=== PATIENT | male | born 1995 | race Caucasian/White ===

== ENCOUNTER 2021-07-13 03:35 | Emergency (ER) | payer MEDICAID ==
[~2021-07-13] VITALS: Ht 190.5 cm; Wt 108.9 kg
[~2021-07-13 03:35] MED LIST: ALBU0.0939; FLUT1DSK19; LORA10TA
[2021-07-13] MEDS ORDERED: IBUPROFEN 800 MG TAB PO ONE (03:45)
[2021-07-13 03:47] VITALS: BP 136/84
[2021-07-13] MEDS ORDERED: ACETAMINOPHEN EXTRA STRENGTH 500 MG TAB ONE (03:54)
[2021-07-13] MEDS ORDERED: ACETAMINOPHEN EXTRA STRENGTH 500 MG TAB PO ONE (03:55)
[2021-07-13] MEDS ORDERED: PROPOFOL 200 MG/20 ML VIAL IV ONE ×4 (04:22→08:10)
--- NOTE | 2021-07-13 04:30 | NUR ---
patient moved to bed 11
--- NOTE | 2021-07-13 05:00 | NUR ---
set up for conscious sedation per ERMD orders.
[2021-07-13] MEDS ORDERED: MORPHINE SULFATE 2 MG/ML SYR IVP ONE (05:45)
[2021-07-13] MEDS ORDERED: ONDANSETRON 4 MG/2 ML VIAL IVP ONE (05:45)
--- NOTE | 2021-07-13 06:00 | NUR ---
xray at bedside
--- NOTE | 2021-07-13 06:13 | NUR ---
PER SIMON SIDDIQUI, HOLD ON MORPHINE AND ZOFRAN MEDICATION AFTER RIGHT SHOULDER REDUCTION PROCEDURE.
--- NOTE | 2021-07-13 06:20 | NUR ---
set up for another conscious sedation per ERMD orders.
[2021-07-13] MEDS ORDERED: ETOMIDATE 20 MG/10 ML VIAL IVP ONE (06:25)
--- NOTE | 2021-07-13 07:00 | NUR ---
RT ATTENDED CONSIOUS SEDATION. NO SOB OR DISTRESS NOTED.
[2021-07-13] MEDS ORDERED: MORPHINE SULFATE 2 MG/ML SYR ONE (07:03)
[2021-07-13] MEDS ORDERED: fentaNYL citrate 0.05 MG/ML VIAL IVP ONE (07:10)
[2021-07-13] MEDS ORDERED: diphenhydrAMINE 50 MG/ML VIAL IVP ONE (07:15)
--- NOTE | 2021-07-13 07:47 | NUR ---
PT TAKEN TO CT VIA [facility], ACCOMPANIED BY PD.
--- NOTE | 2021-07-13 07:53 | NUR ---
Pt report given to Sterling ORTEZ. Transfer of care at this time.
--- NOTE | 2021-07-13 07:53 | NUR ---
REPORT RECEIVED FROM JASBIR RN FOR CONTINUITY OF CARE
--- NOTE | 2021-07-13 07:58 | NUR ---
PT RETURNED FROM CT
--- NOTE | 2021-07-13 08:02 | NUR ---
See conscious sedation form for VS
[2021-07-13 08:52] VITALS: BP 147/79
--- NOTE | 2021-07-13 08:52 | NUR ---
PATIENT BIB [employer]. PATIENT EXAMINED BY DR. SRINIVASAN. PATIENT MEDICALLY CLEARED AND RELEASED IN CUSTODY IN STABLE CONDITION. ORIGINAL PRE-BOOK FORM GIVEN TO OFFICER [facility] #[id number].
== END 2021-07-13 08:52 ==
LOC: MED 03:35
DX: S43.004A Unspecified dislocation of right shoulder joint, initial encounter (principal); J45.909 Unspecified asthma, uncomplicated; Z79.899 Other long term (current) drug therapy; Z88.8 Allergy status to other drugs, medicaments and biological substances; X58.XXXA Exposure to other specified factors, initial encounter; Y93.89 Activity, other specified; Y92.89 Other specified places as the place of occurrence of the external cause; Y99.8 Other external cause status
CPT/HCPCS: 23650; 73030; 73080; 73090; 73200; 96374; 96375; 99152; 99285; J1200; J2270; J2405; J2704; J3490; Q0092